=== PATIENT | male | born 1985 | race Caucasian/White ===

== ENCOUNTER 2023-06-05 13:27 | Emergency (ER) | payer OTHER ==
[~2023-06-05] VITALS: Ht 177.8 cm; Wt 98.1 kg
[2023-06-05 13:27] VITALS: BP 142/79; TEMP 97.9; O2SAT 97
[2023-06-05] MEDS ORDERED: GNPCAP31 PO (13:46)
[2023-06-05] MEDS ORDERED: AMOX875T2 PO (14:22)
[2023-06-05 14:46] LABS: RSV AMPLIFICATION NEGATIVE (NEGATIVE)
== END 2023-06-05 14:34 | disposition home or self-care (01) ==
LOC: M ED 13:27
DX: J02.0 Streptococcal pharyngitis (principal); Z79.2 Long term (current) use of antibiotics